=== PATIENT | female | born 1935 | race Caucasian/White ===

== ENCOUNTER → 2017-04-22 | Outpatient (CLI) | payer MEDICARE ==
[~2017-04-22] MED LIST: ACET500T71 PO; AMLO1CAP12 PO; ATORVASTATIN PO; CALC1CAP8 PO; CHOL10003 PO; CYCL1DRO EACHEYE; DIPH25CA61 PO; LEVO50TA5 PO; POTA20TA89 PO; SIMV20TA3 PO; VIT1TABL34 PO; [UNRECOGNIZED DRUG - CODE] PO
== END | disposition home or self-care (01) ==
LOC: CFH 12:14
PROVIDERS: ATTEND Internal Medicine
DX: G31.89 Other specified degenerative diseases of nervous system (principal); R90.82 White matter disease, unspecified; J34.1 Cyst and mucocele of nose and nasal sinus
CPT/HCPCS: 70450

== ENCOUNTER 2020-10-01 12:27 | Outpatient (CLI) | payer MEDICARE ==
[~2020-10-01 12:27] MED LIST changes: +ACET500T64 PO; -ACET500T71 PO; -AMLO1CAP12 PO; +AMLO1CAP13 PO; +REGADENOSON 0.4 MG/5 ML SYRINGE ONE; +SIMV20TA19 PO; -SIMV20TA3 PO
== END 2020-10-01 23:59 | disposition home or self-care (01) ==
LOC: CFH 12:27
PROVIDERS: ATTEND Internal Medicine Cardiovascular Disease
DX: I25.9 Chronic ischemic heart disease, unspecified (principal); R94.31 Abnormal electrocardiogram [ECG] [EKG]
CPT/HCPCS: 78452; 93017; A9502; J2785